=== PATIENT | male | born 1950 | race Caucasian/White ===

== ENCOUNTER 2018-01-24 11:15 | Observation (INO) | payer MEDICARE, OTHER ==
[2018-01-24] MEDS ORDERED: NS 0.9% 1000 ML* 1,000 ML IV SCH (12:00)
--- NOTE | 2018-01-24 12:20 | RAD ---
INDICATION: TIA. COMPARISON: There are no prior studies available for comparison. TECHNIQUE: Contiguous axial sections of the brain were obtained from the skull base to the vertex without contrast. FINDINGS: The ventricles, cisterns and sulci are within normal limits. No significant focal abnormality or mass effect is seen. There is no evidence for hemorrhage. No significant focal osseous abnormality is seen. The visualized portion of the paranasal sinuses and mastoid air cells appear clear. The results of this examination were called to referring clinician at 1215 hours. IMPRESSION: NO EVIDENCE FOR GROSS ACUTE INFARCT, MASS EFFECT OR HEMORRHAGE.
[2018-01-24 12:27] LABS: ABS Basophils 0 10^3/ul (0-0.2); ABS Eosinophils 0.2 10^3/ul (0-0.6); ABS Lymphocytes 1.4 10^3/ul (1.0-4.8); ABS Monocytes 0.5 10^3/ul (0-0.8); ABS Neutrophils 4.2 10^3/ul (1.5-7.7); ABS Nucleated RBC 0 10^3/ul; Hematocrit 46 % (42-52); Hemoglobin 15.4 g/dl (14.0-18.0); Lymphocyte % 22.1 % (25-47); Mean Corpuscular HGB Conc 34 g/dl (31-36); Mean Corpuscular Hemoglobin 31 pg (27-31); Mean Corpuscular Volume 91 fL (80-94); Mean Platelet Volume 7.2 um3 (7.4-10.4); Nucleated Red Blood Cells % 0; Platelet Count 195 10^3/ul (150-450); Red Blood Count 5.01 10^6/ul (4.0-5.4); Red Cell Distribution Width 13 % (10.5-15); White Blood Count 6.4 10^3/ul (3.5-10.8)
[2018-01-24 12:30] LABS: Urine Appearance Clear; Urine Blood Negative (Negative); Urine Color Yellow; Urine Ketones Negative (Negative); Urine Protein Negative (Negative); Urine Specific Gravity 1.011 (1.010-1.030); Urine Urobilinogen Negative (Negative)
[2018-01-24 12:44] LABS: INR 0.83 (0.77-1.02)
--- NOTE | 2018-01-24 13:51 | ED ---
Drew Chang Tiffany, scribed for Trenton Angeles on 01/24/18 at 1148 . Altered Mental Status - HPI Summary HPI Summary: 67 y/o M LITA to [facility] complains of altered mental status lasting from 08:30 to 10:30 this morning. Symptoms aggravated and alleviated by nothing. Denies pain, vision changes, weakness. Reports waking up at 07:00. Per , last known well was 08:30 when she left the house. Patient called at 09:45 and couldn't remember anything (e.g., pt didn't know where was, didn't recognize garage , wasn't making sense, was confused). Per , ambulance arrived around 10:45 and pt was fine. Hit by 2x4 while working outside 2-3 days ago. Hx of concussion. Denies hx stroke. - History Of Current Complaint Chief Complaint: EDAltMentalStatus Stated Complaint: AMS Time Seen by Provider: 01/24/18 11:41 Hx Obtained From: Patient, Family/Hydrographical Technical Officer - Last Known Well Date: 01/24/18 at 08:30 Character: Confusion Aggravating Factor(s): Nothing Alleviating Factor(s): Nothing Associated Signs And Symptoms: Positive: Negative - pain, vision changes, weakness - Allergies/Home Medications Allergies/Adverse Reactions: Allergies Allergy/AdvReac Type Severity Reaction Status Date / Time No Known Allergies Allergy Verified 04/19/14 15:25 PMH/Surg Hx/FS Hx/Imm Hx Previously Healthy: No Endocrine/Hematology History: Reports: Hx Thyroid Disease Denies: Hx Diabetes Cardiovascular History: Reports: Hx Angina, Hx Hypercholesterolemia, Hx Hypertension Denies: Hx Coronary Artery Disease, Hx Valvular Heart Disease Respiratory History: Denies: Hx Asthma, Hx Chronic Obstructive Pulmonary Disease (COPD) Musculoskeletal History: Reports: Hx Arthritis Sensory History: Reports: Hx Contacts or Glasses, Hx Hearing Aid - NOT WITH PT Opthamlomology History: Reports: Hx Contacts or Glasses Neurological History: Denies: Hx CVA, Hx Transient Ischemic Attacks (TIA) - Surgical History Surgery Procedure, Year, and Place: Tonsillectomy Infectious Disease History: No Infectious Disease History: Denies: Traveled Outside the [place] in Last 30 Days - Family History Known Family History: Positive: Cardiac Disease - Mother had heart failure, father had triple bypass, Diabetes - Mother, sister, Other - Sister had kidney transplant - Social History Alcohol Use: Daily Alcohol Amount: 2-3 cans/beer Hx Substance Use: No Substance Use Type: Reports: None Hx Tobacco Use: Yes Smoking Status (MU): Former Smoker Review of Systems Constitutional: Negative - Pain Eyes: Negative - Vision changes Neurological: Other - Althered mental status lasting from 08:30 to 10:30 this morning Negative: Weakness All Other Systems Reviewed And Are Negative: Yes Physical Exam - Summary Physical Exam Summary: Appearance: Well appearing, no pain distress Skin: warm, dry, reflects adequate perfusion Head/face: normal Eyes: EOMI, SANDRA ENT: normal Neck: supple, non-tender Respiratory: CTA, breath sounds present Cardiovascular: RRR, pulses symmetrical Abdomen: non-tender, soft Bowel: present Musculoskeletal: normal, strength/ROM intact Neuro: normal, sensory motor intact, A&Ox3, NIH is 0 Triage Information Reviewed: Yes Vital Signs On Initial Exam: Initial Vitals Pulse Resp Pulse Ox 65 17 93 01/24/18 11:25 01/24/18 11:25 01/24/18 11:25 Vital Signs Reviewed: Yes Diagnostics - Vital Signs Vital Signs Temp Pulse Resp BP Pulse Ox 01/24/18 11:33 98.3 F 73 12 145/87 96 01/24/18 11:25 65 17 93 - Laboratory Lab Results: Lab Results 01/24/18 01/24/18 01/24/18 Range/Units 12:15 12:15 12:15 WBC 6.4 (3.5-10.8) 10^3/ul RBC 5.01 (4.0-5.4) 10^6/ul Hgb 15.4 (14.0-18.0) g/dl Hct 46 (42-52) % MCV 91 (80-94) fL MCH 31 (27-31) pg MCHC 34 (31-36) g/dl RDW 13 (10.5-15) % Plt Count 195 (150-450) 10^3/ul MPV 7.2 L (7.4-10.4) um3 Neut % (Auto) 66.1 (38-83) % Lymph % (Auto) 22.1 L (25-47) % [place] % (Auto) 8.4 H (0-7) % Eos % (Auto) 3.0 (0-6) % Baso % (Auto) 0.4 (0-2) % Absolute Neuts (auto) 4.2 (1.5-7.7) 10^3/ul Absolute Lymphs (auto) 1.4 (1.0-4.8) 10^3/ul Absolute Monos (auto) 0.5 (0-0.8) 10^3/ul Absolute Eos (auto) 0.2 (0-0.6) 10^3/ul Absolute Basos (auto) 0 (0-0.2) 10^3/ul Absolute Nucleated RBC 0 10^3/ul Nucleated RBC % 0 INR (Anticoag Therapy) 0.83 (0.77-1.02) APTT 33.2 (26.0-36.3) seconds Sodium 140 (139-145) mmol/L Potassium Pending Chloride 106 (101-111) mmol/L Carbon Dioxide 26 (22-32) mmol/L Anion Gap Pending BUN 17 (6-24) mg/dL Creatinine 1.05 (0.67-1.17) mg/dL Est GFR ( Amer) 90.1 (>60) Est GFR (Non-Af Amer) 70.0 (>60) BUN/Creatinine Ratio 16.2 (8-20) Glucose 93 (70-100) mg/dL Calcium 9.5 (8.6-10.3) mg/dL Total Bilirubin 0.60 (0.2-1.0) mg/dL AST Pending ALT 24 (7-52) U/L Alkaline Phosphatase 76 (34-104) U/L Total Protein 7.2 (6.4-8.9) g/dL Albumin 4.4 (3.2-5.2) g/dL Globulin 2.8 (2-4) g/dL Albumin/Globulin Ratio 1.6 (1-3) Urine Color Urine Appearance Urine pH (5-9) Ur Specific Pollock (1.010-1.030) Urine Protein (Negative) Urine Ketones (Negative) Urine Blood (Negative) Urine Nitrate (Negative) Urine Bilirubin (Negative) Urine Urobilinogen (Negative) Ur Leukocyte Esterase (Negative) Urine Glucose (Negative) 01/24/18 Range/Units 12:16 WBC (3.5-10.8) 10^3/ul RBC (4.0-5.4) 10^6/ul Hgb (14.0-18.0) g/dl Hct (42-52) % MCV (80-94) fL MCH (27-31) pg MCHC (31-36) g/dl RDW (10.5-15) % Plt Count (150-450) 10^3/ul MPV (7.4-10.4) um3 Neut % (Auto) (38-83) % Lymph % (Auto) (25-47) % [place] % (Auto) (0-7) % Eos % (Auto) (0-6) % Baso % (Auto) (0-2) % Absolute Neuts (auto) (1.5-7.7) 10^3/ul Absolute Lymphs (auto) (1.0-4.8) 10^3/ul Absolute Monos (auto) (0-0.8) 10^3/ul Absolute Eos (auto) (0-0.6) 10^3/ul Absolute Basos (auto) (0-0.2) 10^3/ul Absolute Nucleated RBC 10^3/ul Nucleated RBC % INR (Anticoag Therapy) (0.77-1.02) APTT (26.0-36.3) seconds Sodium (139-145) mmol/L Potassium Chloride (101-111) mmol/L Carbon Dioxide (22-32) mmol/L Anion Gap BUN (6-24) mg/dL Creatinine (0.67-1.17) mg/dL Est GFR ( Amer) (>60) Est GFR (Non-Af Amer) (>60) BUN/Creatinine Ratio (8-20) Glucose (70-100) mg/dL Calcium (8.6-10.3) mg/dL Total Bilirubin (0.2-1.0) mg/dL AST ALT (7-52) U/L Alkaline Phosphatase (34-104) U/L Total Protein (6.4-8.9) g/dL Albumin (3.2-5.2) g/dL Globulin (2-4) g/dL Albumin/Globulin Ratio (1-3) Urine Color Yellow Urine Appearance Clear Urine pH 5.0 (5-9) Ur Specific Pollock 1.011 (1.010-1.030) Urine Protein Negative (Negative) Urine Ketones Negative (Negative) Urine Blood Negative (Negative) Urine Nitrate Negative (Negative) Urine Bilirubin Negative (Negative) Urine Urobilinogen Negative (Negative) Ur Leukocyte Esterase Negative (Negative) Urine Glucose Negative (Negative) Result Diagrams: 01/24/18 12:15 01/24/18 12:15 Lab Statement: Any lab studies that have been ordered have been reviewed, and results considered in the medical decision making process. - CT Brain CT Interpretation Completed By: Radiologist - NO EVIDENCE FOR GROSS ACUTE INFARCT, MASS EFFECT OR HEMORRHAGE. ED physician has reviewed this report. - EKG 12:12 Cardiac Rate: NL - 61 BPM EKG Rhythm: Sinus Rhythm EKG Interpretation: No acute changes National Institutes Of Health - NIH Scale Level of Consciousness: Alert/Keenly Responsive Ask Patient the Month and His/Her Age: Both Correct Ask Pt to Open/Close Eyes and Personnel Monitor/Release Non-Paretic Hand: Both Correctly Best Gaze (Only Horizontal Eye Movement): Normal Visual Field Testing: No Visual Loss Facial Paresis-Pt to Smile & Close Eyes or Grimace Symmetry: Normal/Symmetrical Motor Function - Right Arm: No Drift-Holds 10 Seconds Motor Function - Left Arm: No Drift-Holds 10 Seconds Motor Function - Right Leg: No Drift-Holds 10 Seconds Motor Function - Left Leg: No Drift-Holds 10 Seconds Limb Ataxia-Must be out of Proportion to Weakness Present: Absent Sensory (Use Pinprick to Test Arms/Legs/Trunk/Face): Normal Best Language (Describe Picture, Name Items): No Aphasia Dysarthria (Read Several Words): Normal Extinction and Inattention: No Abnormality Total Score: 0 Altered Mental Statu Course/Dx - Course Course Of Treatment: 67 y/o M BIBA to [facility] complains of altered mental status. Bloodwork, UA, imaging obtained. Consulted patient care with Dr. Starkey, hospitalist, who agrees to admit patient. - Diagnoses Differential Diagnosis/HQI/PQRI: CVA, Intracranial Bleed, Seizure, Other - seizures Provider Diagnoses: TGA (transient global amnesia) - Provider Notifications Discussed Care Of Patient With: Jolynn Starkey Time Discussed With Above Provider: 12:45 Instructed by Provider To: Other - Dr. Starkey, hospitalist, agrees to admit patient. - Critical Care Time Critical Care Time: 30-74 min - 30 minutes Discharge - Sign-Out/Discharge Documenting (check all that apply): Discharge/Admit/Transfer - Discharge Plan Condition: Stable Disposition: ADMITTED TO [facility] Referrals: Abhishek Rai MD [Primary Care Provider] - - Billing Disposition and Condition Condition: STABLE Disposition: [facility] [place] The documentation as recorded by the Drew calvert Tiffany accurately reflects the service I personally performed and the decisions made by Bridgette hall Emmanuel.
--- NOTE | 2018-01-24 15:47 | CONS ---
CONSULTATION REPORT: DATE OF CONSULT: 01/24/18. CONSULTING PHYSICIAN: Dr. Angeles. REASON FOR CONSULT: Memory impairment. CHIEF COMPLAINT: Loss of time. HISTORY OF PRESENT ILLNESS: Elie Judge is a 67-year-old right handed male who has a history of thyroid disease and childhood seizures, who woke up at 7:30 a.m. in normal state of health and helped his load up boxes into the vehicle. He also had breakfast with his thereafter. At 9:30 a.m., the patient called his over the phone to explain some deficits which consisted of confusion. He then called his at 10 a.m. and stated that he does not think he needs an ambulance and then he was confused why his garage was a mess and does not look like his own garage. These symptoms never occurred before. The patient stated that he was telling his that he has lost time. He is unsure what happened. There was no seizure activity reported. He denied any tongue biting or impairment in his bowel or bladder functions. He has no idea and does not recall contacting his at 9:30 a.m. He does remember talking to his at that time. He denied any focal weakness or paresthesias. He denied any headaches. The patient does have history of tinnitus, vertigo, and hearing loss. He was never diagnosed except with benign vertigo, but never given the diagnosis of Meniere's disease. The patient had a CT head without contrast that showed no evidence of acute intracranial process. The patient's symptoms completely resolved after 20 minutes. Laboratory values WBC of 6.4, hemoglobin 15.4, hematocrit 46, platelet 195. INR 0.83. Sodium of 140. PAST MEDICAL HISTORY: Thyroid disease, seizure history as a child, bilateral shoulder pain. PAST SURGICAL HISTORY: Tonsillectomy. MEDICATIONS: Levothyroxine and Tums. FAMILY HISTORY: Sister has diabetes and his father had narcolepsy. The patient 's son has seizures. SOCIAL HISTORY: He is a former tobacco user and he quit 40 years ago. He drinks alcohol daily 2 to 3 beers for over 10 years. 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 He is . He has 2 children. His son suffers from epilepsy. REVIEW OF SYSTEMS: He denied any chest pain, shortness of breath or palpitations. He denied any headaches, visual disturbance, or speech impairment. A 14-point review of systems was obtained, and reviewed and was otherwise negative except for what was mentioned in the HPI. PHYSICAL EXAM: Vitals: Temperature of 98.3, pulse of 73, respiratory rate of 12, oxygen saturation of 96% and blood pressure 145/87. General: Well-nourished well-developed man. He is hard of hearing. He is alert, cooperative, in no apparent distress. Head is normocephalic without any obvious abnormality. Eyes: Conjunctivae and corneas are clear. Neck: Supple and symmetric. There are no carotid bruits. Lungs: Clear to auscultation bilaterally and nonlabored breathing. Cardiovascular: Regular rate rhythm. Normal S1, S2. Radial pulses are palpable. Extremities: Normal range of motion without any cyanosis. Skin: No skin lesion or lacerations. Psych: Affect is broad and normal mood. He is easy to establish a rapport. Neurological Examination: Mental Status: He is awake and alert, oriented to person, place, time and general circumstances. Speech and language including expression, naming, repetition and comprehensions were assessed and found to be normal. Cranial Nerves: Normal to confrontation bilaterally with pupils mid range and reactive to light with normal consensual response. Extraocular muscles are intact. No ptosis. Sensation is intact in the forehead, cheeks, and jaw region. No facial droop and facial symmetry is normal. Able to hear throughout the history process. Symmetrical palate elevation. Normal strength against resistance for shoulder shrug and tongue is symmetrical and midline with anterior fasciculation. Motor examination, no abnormal movements pronator drift. Normal bulk and tone throughout. No fasciculation. Neck distention is 5. Shoulder range of motion is full. Other motor function is normal 5/5 throughout. Reflexes (right/left): Brachioradialis 2/2 biceps 2/2, triceps 2/2 , patella 2/2, ankle 0/0. Plantar flexor/flexor. Sensation is intact to light touch throughout. Normal vibration and proprioception at the great toes. Coordination: Normal [id number] and rapid alternating movements. Gait and station: Narrow based. Normal stance and gait. LABORATORY DATA/IMAGING AND OTHER DIAGNOSTIC TESTING: As per HPI. ASSESSMENT: 1. A 67-year-old man with no significant past medical history except for childhood seizures, who developed a sudden onset of confusion, and amnesia lasting for about 20 minutes today. I suspect the patient has transient global amnesia. However, further evaluation for vertebrobasilar insufficiency and temporal lobe seizures should be done. 2. Tinnitus, hearing loss, and episodic vertigo - I suspect the patient has a vestibular dysfunction or underlying Meniere's disease. He is not currently complaining of any vertigo. He does take meclizine at home. PLAN/RECOMMENDATIONS: Admit the patient to the hospitalist service for further evaluation of amnesia. Obtain an MRI of the brain without contrast and MRA of the head without contrast. In addition, obtain a bedside routine EEG to evaluate for any epileptiform abnormalities. Neuro-checks q. 4 hours. Discontinue IV fluids. Please consult case management or social welfare administrator as the patient wants to make sure this hospitalization is covered by his insurance as he would now want to be hospitalized if it is not. I discussed driving restriction with the patient and his spouse. He should not be operating any heavy machinery until the diagnosis is clear or until we know these episodes are not related to seizures. Neurology will continue to follow. I discussed the above recommendation with the patient and his spouse. TIME SPENT: I spent a total of 75 minutes and greater than 50% of that was spent directly reviewing the medical chart, obtaining history, examining the patient, education and counseling, and the treatment plan and prognosis which we d not know at this time. I recommend multivitamin supplementation given his history of alcohol use. [id number]/[facility] #: [id number] LATOYA
[2018-01-24] MEDS: Multivitamins/Minerals TAB PO SCH (15:48)
[2018-01-24] MEDS: Thiamine TAB* 100 MG TAB PO SCH (15:49)
--- NOTE | 2018-01-24 16:26 | RAD ---
HISTORY: MRI clearance. COMPARISON: None. FINDINGS: Frontal and lateral views of the orbits. There is no radiopaque foreign body attributable to the orbits. The orbital rims are intact. The sinuses are clear. The zygomatic arches are normal. IMPRESSION: No radiopaque foreign body attributable to the orbits.
--- NOTE | 2018-01-24 17:08 | RAD ---
HISTORY: Transient global amnesia COMPARISONS: Head CT dated January 24, 2018 TECHNIQUE: The following sequences were obtained of the head: Sagittal T1-weighted images, axial T2-weighted images, axial FLAIR images, axial susceptibility weighted images, axial T1-weighted images. Additionally, axial diffusion-weighted images were obtained with calculated apparent diffusion coefficients. FINDINGS: HEMORRHAGE/INFARCT: There is no hemorrhage or acute infarct. MASSES/SHIFT: There is no mass or shift. EXTRA-AXIAL SPACES/MENINGES: There are no extra-axial fluid collections. SULCI AND VENTRICLES: The sulci and ventricles are normal in size and position for the patient's stated age. CEREBRUM: There are few, scattered small foci of elevated T2/FLAIR signal within the periventricular and subcortical white matter. BRAINSTEM: There are no focal parenchymal abnormalities. CEREBELLUM: There are no focal parenchymal abnormalities. The cerebellar tonsils are normal in size and position. SELLA: The sella is normal. PINEAL: The pineal region is clear. CP ANGLE/TEMPORAL BONES: The labyrinthine structures are grossly normal. VESSELS: Normal flow-voids are noted within the visualized vertebral vasculature. DIFFUSION ABNORMALITIES: There are no diffusion abnormalities. PARANASAL SINUSES/MASTOIDS: There is an enhancing fluid level within the sphenoid sinus. ORBITS: The orbits are unremarkable. BONES AND SOFT TISSUE: No bone or soft tissue abnormalities are noted. OTHER: None IMPRESSION: 1. THERE ARE FEW, SCATTERED, SMALL FOCI OF ELEVATED T2/FLAIR SIGNAL WITHIN THE PERIVENTRICULAR AND SUBCORTICAL WHITE MATTER. WHILE THESE FINDINGS ARE NONSPECIFIC, THEY CAN BE SEEN IN ASSOCIATION WITH MIGRAINE HEADACHE, THE SEQUELA OF PREVIOUS INFECTION OR INFLAMMATION, AND CHRONIC SMALL VESSEL ISCHEMIA. DEMYELINATING DISEASE IS ALSO WITHIN THE DIFFERENTIAL, BUT IS CONSIDERED LESS LIKELY IN THE ABSENCE OF THE APPROPRIATE CLINICAL PRESENTATION. 2. THERE IS NO RESTRICTED DIFFUSION TO SUGGEST ACUTE INFARCT. 3. MILD SINUS MUCOSAL INFLAMMATORY DISEASE, WITH AN AIR-FLUID LEVEL IN THE SPHENOID SINUS. IN THE CORRECT CLINICAL SETTING, THIS MAY REPRESENT ACUTE SINUSITIS
--- NOTE | 2018-01-24 17:14 | RAD ---
HISTORY: Transient global amnesia COMPARISONS: MRI of the brain dated January 24, 2018 TECHNIQUE: 3-D axial plip-cf-cutitg MR angiography was performed of the head to include the chitimacha of Mathew. Multiple 3-D maximum intensity projection reconstructions are also submitted for review. FINDINGS: The study is limited by patient motion artifact. RIGHT VERTEBRAL ARTERY: There is decreased flow related enhancement within the V4 segment of the right vertebral artery. LEFT VERTEBRAL ARTERY: The distal left vertebral artery is unremarkable, without stenosis. DOMINANCE: The left vertebral artery is dominant. DISTAL RIGHT CERVICAL INTERNAL CAROTID ARTERY: The distal right cervical internal carotid artery is unremarkable. DISTAL LEFT CERVICAL INTERNAL CAROTID ARTERY: The distal left cervical internal carotid artery is unremarkable. INTRACRANIAL CIRCULATION: As noted above, there is decreased flow-related enhancement within the V4 segment of the right vertebral artery. Elsewhere, there is no aneurysm, vascular malformation, occlusion, or stenosis of the visualized intracranial circulation. The anterior communicating artery complex is clear. The anterior tibial artery complex is dominant over the A1 segment of the right anterior cerebral artery. Bilateral posterior communicating arteries are identified. OTHER FINDINGS: None IMPRESSION: 1. DECREASED FLOW RELATED ENHANCEMENT WITHIN THE V4 SEGMENT OF THE RIGHT VERTEBRAL ARTERY WHICH MAY INDICATE STENOSIS OR OCCLUSION OF THE DISTAL RIGHT VERTEBRAL ARTERY. 2. ELSEWHERE, THERE IS NO ANEURYSM, VASCULAR MALFORMATION, OCCLUSION, OR STENOSIS OF THE VISUALIZED INTRACRANIAL CIRCULATION.
--- NOTE | 2018-01-24 20:15 | HP ---
CC: Abhishek Rai MD * ADMISSION HISTORY AND PHYSICAL: DATE OF ADMISSION: 01/24/18 PRIMARY CARE PHYSICIAN: Abhishek Rai MD MY ATTENDING FOR TODAY: Jolynn Starkey MD * (DICTATED BY ROSEMARY GIBSON NP) CHIEF COMPLAINT: Altered mental status. HISTORY OF PRESENT ILLNESS: This is a very pleasant 67-year-old male patient who states that earlier today he was at home this morning in his usual state of health; however, he had a period of time that he does not remember and apparently had called his at work twice and was speaking in a confused manner. The patient states by the time he was making the second phone call, he started to have some memory of this episode where he did not know where he was and then started to realize that he was having a problem. The patient's stated that by the time the ambulance came at approximately quarter to 11, the patient's symptoms had resolved. These symptoms lasted approximately 2 hours. He was last seen at 8:30 in the morning and then again about 10:30, symptoms had completely resolved. Also of significant note, the patient states about 3 days ago he was in his garage, working around his home, and a 4 x 4 fell on his head striking him around the left parietal region. The patient states he had no loss of consciousness at that time, no headache and no further neurologic complaints at that time. PAST MEDICAL HISTORY: Significant for: 1. Hypothyroidism. 2. Hypercholesterolemia. 3. Hypertension. 4. Some sort of seizure disorder as a child. PAST SURGICAL HISTORY: Tonsillectomy as a child. MEDICATIONS AT HOME: Include Synthroid 25 mcg daily. ALLERGIES: No known drug allergies. FAMILY HISTORY: Mother and father both with cardiac disease and heart failure, father with triple bypass surgery and diabetes, and sister with renal disease. SOCIAL HISTORY: The patient drinks beer daily, 2 to 3 cans. Denies smoking currently. He quit smoking approximately 40 years ago. Denies any illicit drug use. He is retired. Lives at home with his who is his medical healthcare proxy. She is currently at the bedside. REVIEW OF SYSTEMS: A 10-point review of systems is negative except as noted in the HPI. PHYSICAL EXAMINATION GENERAL: The patient is alert, well appearing, no acute distress. VITAL SIGNS: Currently, blood pressure 132/84, heart rate 62, respiratory rate 18, 95% on room air, temperature 98.3. HEENT: The patient is atraumatic, normocephalic. There is no bruising. No abrasions or lacerations to the scalp. He has PERRLA. Extraocular movements are intact. Oral mucosa is moist. Tongue is midline. NECK: Supple, nontender. No JVD noted. No carotid bruits auscultated. LUNGS: Clear to auscultation. No wheezing, rhonchi, or rales. CARDIOVASCULAR: S1, S2 present. Rate and rhythm are regular. No murmurs, gallops, or rubs noted. ABDOMEN: Soft, nontender, nondistended. He does have a small area of erythema , which the patient states was a tick bite approximately 1 week ago. Does not appear to be infected. There is no exudate or drainage. It is just lateral to the navel, approximately 0.5 cm in size and round. MUSCULOSKELETAL: He has +2 distal pulses. No edema, no clubbing, no cyanosis. He has a steady gait. NEUROLOGIC: Gross motor and sensation are intact. There is no pronator drift. Sm[place]ter Liner are equal. He has facial symmetry. No focal neurologic deficits. PSYCHIATRIC: He is cooperative and appropriate. LABORATORY DATA/DIAGNOSTIC STUDIES: WBC 6.4, RBC 5.01, hemoglobin 15.4, hematocrit 46, platelets 195,000, MPV 7.2, neutrophils 66.1, lymphocytes 22.1, monos 8.4. Sodium 140, potassium 4.1, chloride 106, CO2 of 26, BUN 17, creatinine 1.05, GFR 70.0, glucose 93. Calcium 9.5. Bilirubin 0.60, AST 25, ALT 24, alk phos 76. Protein 7.2. Albumin 4.4, globulin 2.8. INR 0.83. Urinalysis is negative for any acute infectious process. CAT scan of the head shows no intracranial hemorrhage or infarct. No evidence for gross acute infarct, mass effect, or hemorrhage. IMPRESSION: This is a 67-year-old male patient with a history of hypothyroidism who is normally very active, reports a recent closed head trauma , but had no subsequent sequelae who now presents to the emergency department with a transient global amnesia. PLAN: The patient has been admitted to medical service. DIAGNOSES: Transient global amnesia versus seizure versus other etiology. Again, the patient had this brief period of confusion consistent with a transient global amnesia. Etiology is not clear at this time. We will do an MRI and MRA without contrast. Neurology has already seen the patient and been consulted. Neurology also wishes to have an EEG given that the patient seems to have a vague recollection of having some sort of seizure disorder as a child perhaps. We will also place him on neuro checks q.4 hours and add MVI and folate. The patient does not appear to be grossly alcoholic; however, with daily beer drinking and with his neurologic symptoms, it would be prudent to place him on MVI and thiamine. For his hypothyroidism, we will continue his Synthroid. I am concerned about the tick bite. At this point, I think it would be warranted to send a Lyme panel. Even though the patient does not have a large gross rash, he does work outside quite a bit and could perhaps be presenting with some latent neurologic symptoms secondary to Lyme, so we will send his blood for PCR testing. For DVT prophylaxis, the patient is low risk and ambulatory. He is a full code. The rest of the patient's course will be determined by further diagnostics, laboratories, and any other input from other providers as warranted during this admission. We will continue to monitor the patient closely. ROSEMARY GIBSON, [employer] [id number]/CPS #: [id number] LATOYA
[2018-01-25] MEDS ORDERED: Levothyroxine TAB* 75 MCG TAB PO SCH (06:00)
[2018-01-25 07:37] VITALS: BP 133/77
--- NOTE | 2018-01-25 08:17 | PN ---
Subjective Date of Service: 01/25/18 Interval History: Patient seen and examined at bedside. Denies fever, chills, lightheadedness or dizziness, shortness of breath, chest discomfort, N/V/D, joint pain (other than shoulders). Pt states that he continues to have a short period of time yesterday that he doesn't remember. He also reports intermittent shoulder pain and numbness to bilateral hands, Pt was encouraged to see an orthopedic provider for further evaluation of this. Tele: Sinus rhythm, rate 50-70's Family History: Unchanged from Admission Social History: Unchanged from Admission Past Medical History: Unchanged from Admission Objective Active Medications: Sodium Chloride (Ns 0.9% 1000 Ml*) 1,000 mls @ 50 mls/hr IV .per rate ANTONY Levothyroxine Sodium (Synthroid Tab*) 75 mcg PO 0600 [facility] Multivitamins/Minerals (Theragran/Minerals Tab*) 1 tab PO DAILY ANTONY Thiamine HCl (Vitamin B-1 Tab*) 100 mg PO DAILY ANTONY Vital Signs - 8 hr 01/25/18 01/25/18 01/25/18 02:44 03:43 07:24 Temperature 98.0 F 97.7 F Pulse Rate 51 55 Respiratory 16 16 Rate Blood Pressure 123/74 133/77 (mmHg) O2 Sat by Pulse 98 99 99 Oximetry 01/25/18 07:39 Temperature Pulse Rate Respiratory 16 Rate Blood Pressure (mmHg) O2 Sat by Pulse Oximetry Oxygen Devices in Use Now: None Appearance: NAD, sitting up in a chair Ears/Nose/Mouth/Throat: Mucous Membranes Moist Respiratory: Symmetrical Chest Expansion and Respiratory Effort, Clear to Auscultation Cardiovascular: NL Sounds; No Murmurs; No JVD, RRR Abdominal: NL Sounds; No Tenderness; No Distention Extremities: No Edema Neurological: Alert and Oriented x 3, NL Muscle Strength and Tone Lines/Tubes/Other Access: Clean, Dry and Intact Peripheral IV - site benign Nutrition: Taking PO's Result Diagrams: 01/24/18 12:15 01/24/18 12:15 Diagnostic Imaging: Exam Date: 01/24/18 1325 MRA HEAD W/O IMPRESSION: 1. DECREASED FLOW RELATED ENHANCEMENT WITHIN THE V4 SEGMENT OF THE RIGHT VERTEBRAL ARTERY WHICH MAY INDICATE STENOSIS OR OCCLUSION OF THE DISTAL RIGHT VERTEBRAL ARTERY. 2. ELSEWHERE, THERE IS NO ANEURYSM, VASCULAR MALFORMATION, OCCLUSION, OR STENOSIS OF THE VISUALIZED INTRACRANIAL CIRCULATION. Exam Date: 01/24/18 1325 MRI BRAIN W/O IMPRESSION: 1. THERE ARE FEW, SCATTERED, SMALL FOCI OF ELEVATED T2/FLAIR SIGNAL WITHIN THE PERIVENTRICULAR AND SUBCORTICAL WHITE MATTER. WHILE THESE FINDINGS ARE NONSPECIFIC, THEY CAN BE SEEN IN ASSOCIATION WITH MIGRAINE HEADACHE, THE SEQUELA OF PREVIOUS INFECTION OR INFLAMMATION, AND CHRONIC SMALL VESSEL ISCHEMIA. DEMYELINATING DISEASE IS ALSO WITHIN THE DIFFERENTIAL, BUT IS CONSIDERED LESS LIKELY IN THE ABSENCE OF THE APPROPRIATE CLINICAL PRESENTATION. 2. THERE IS NO RESTRICTED DIFFUSION TO SUGGEST ACUTE INFARCT. 3. MILD SINUS MUCOSAL INFLAMMATORY DISEASE, WITH AN AIR-FLUID LEVEL IN THE SPHENOID SINUS. IN THE CORRECT CLINICAL SETTING, THIS MAY REPRESENT ACUTE SINUSITIS Assess/Plan/Problems-Billing Assessment: Mr. Judge is a 67 yo male with PMH significant for hypothyroidism, HLD, HTN, and a seizure disorder as a child who presented to the emergency room with complaints of sudden memory loss and confusion. - Patient Problems (1) Altered mental status Code(s): R41.82 - ALTERED MENTAL STATUS, UNSPECIFIED SNOMED Code(s): 987255723 Comment: - MRI/MRA brain and brain CT, without significant findings - EEG pending - Neurology consult, input appreciated (2) Tick bite Code(s): W57.XXXA - BIT/STUNG BY NONVENOM INSECT & OTH NONVENOM ARTHROPODS, INIT SNOMED Code(s): 35227872 Comment: - Lyme serology pending (3) Hypothyroidism Code(s): E03.9 - HYPOTHYROIDISM, UNSPECIFIED SNOMED Code(s): 24710139 Comment: - Continue levothyroxine (4) HTN (hypertension) Code(s): I10 - ESSENTIAL (PRIMARY) HYPERTENSION SNOMED Code(s): 25449227 Comment: - Mostly normotensive, SBP 100-150's - Continue to monitor, not on home medications (5) HLD (hyperlipidemia) Code(s): E78.5 - HYPERLIPIDEMIA, UNSPECIFIED SNOMED Code(s): 67269262 (6) DVT prophylaxis Code(s): YKU9723 - SNOMED Code(s): 807791819 Comment: - Encourage ambulation (7) Full code status Code(s): Z78.9 - OTHER SPECIFIED HEALTH STATUS SNOMED Code(s): 663627547 Status and Disposition: OBV. Discharge to home when medically stable.
[2018-01-25] MEDS: Thiamine TAB* 100 MG TAB PO SCH (09:20)
[2018-01-25] MEDS: Multivitamins/Minerals TAB PO SCH (09:20)
--- NOTE | 2018-01-26 05:49 | EEG ---
ELECTROENCEPHALOGRAPHY: DATE OF STUDY: 01/24/18 - ROOM #[id number] DATE READ: 01/25/18 ROOM: Inpatient. REFERRING PROVIDER: Shelbi Olguin NP. MEDICATIONS: 1. Levothyroxine. 2. Theragran. 3. Vitamin B1. TIME OF TRACIN2590-5502 p.m. CLINICAL PROBLEM: Mr. Judge is a 67-year-old man who has an episode of transient global amnesia. He also has history of childhood epilepsy. This EEG was requested to evaluate for epileptiform abnormalities or electrographic seizures. CLINICAL STATE: Awake and drowsiness. REPORT: The waking background showed appropriate organization with clearly defined anterior-posterior voltage and frequency gradients. There was a well- defined posterior dominant rhythm of 8.5 Hz, which was symmetrical and showed normal reactivity. Anteriorly, there was an expected pattern of lower voltage irregular, mixed faster frequencies. There were intermittent paroxysms of higher amplitude, 3-5 Hz theta and delta slowing seen in the left frontotemporal region maximally at F7. Attenuation of the occipital rhythm accompanied drowsiness with clear vertex waves in the central frontal region without any sleep spindles. Hyperventilation and photic stimulations were not performed. Single electrode ECG, regular rate and rhythm with a rate of 75. Throughout the recording, there were no epileptiform abnormalities or electrographic seizures. CLINICAL IMPRESSION: This is an abnormal awake and drowsy EEG due to the presence of intermittent left frontotemporal slowing. These findings are suggestive of a focal neuronal dysfunction in that region. There were no epileptiform discharges or electrographic seizures. Clinical correlation is recommended. [id number]/CPS #: [id number] MTDD
--- NOTE | 2018-01-26 07:36 | PN ---
NEUROLOGY PROGRESS NOTE: DATE OF SERVICE: 01/25/18 PROVIDER: Argenis Diaz NP Neurology is following for an episode of amnesia. SUBJECTIVE: The patient has no episode of memory loss overnight. He had no reported seizure activity. He shared to me today that he bumped into a 2x4 two days ago that hit him pretty hard on his head on the left side. He did not lose consciousness. He was in pain for a few hours after the injury. He had a small laceration in the region, but that resolved. REVIEW OF SYSTEMS: He denied any focal weakness or paresthesias. He denied any visual disturbance or swallowing difficulty. He denied any chest pain, shortness of breath, or palpitations. IMAGING/LABORATORY DATA: The patient had an EEG that showed mild left temporal slowing that was intermittent. He had an MRI of the brain completed on that I personally reviewed. There are a few scattered small foci of elevated T2 FLAIR signal within the periventricular and subcortical white matter. These are nonspecific findings. There was no restricted diffusion to suggest acute infarct. There is mild sinus mucosal inflammatory disease with an air fluid level in the sphenoid sinus. MRA of the head completed on 01/24/18, personally reviewed. There is decreased flow related enhancement within the V4 segment of the right vertebral artery, which may indicate stenosis or occlusion. There is no intracranial large vessel occlusion elsewhere. MEDICATIONS: 1. Levothyroxine. 2. Multivitamin. 3. Thiamine. PHYSICAL EXAMINATION: Vitals: Temperature of 97.7, pulse rate of 55, respiratory rate of 16, oxygen saturation of 99%, blood pressure 132/77. The patient did have episodes of bradycardia where his heart rate went down to as low as 47. He was asymptomatic. General: A well-nourished, well-developed man , in no acute distress. He is sitting in a chair next to family members. Head : Atraumatic and normocephalic without any obvious abnormality. Eyes: Conjunctivae/corneas were clear. Neck: Supple with no carotid bruits. Lungs: Clear to auscultation bilaterally. Extremities: Normal range of motion with no cyanosis. Psych: Affect is broad and normal. Mood: Easy to establish rapport. Neurological: The patient is awake and alert, oriented to person, place, time and general circumstances. Speech and language including expression naming, repetition, comprehension were assessed and found to be normal. Pupils are equal, round and reactive to light. Extraocular muscles are intact. Normal facial asymmetry. Tongue is symmetric and midline with no atrophy. Motor strength 5/5 throughout. There are no tremors or pronator drift. Reflexes 2+ throughout with 1+ at the ankles bilaterally. Flexor plantar response bilaterally. Sensation is intact to light touch throughout the upper and lower extremities symmetrically. Coordination: Normal finger-to- nose and rapid alternating movement. Gait: Narrow based and normal stance with no ataxia. ASSESSMENT: 1. This is a pleasant 67-year-old man with episode of transient global amnesia following a mild concussion. EEG showed evidence of intermittent left frontotemporal slowing which could be possibly due to a small structural abnormality not seen on MRI related to recent injury. There is no evidence of acute stroke. 2. Sinus disease - deferred to the primary team. 3. Asymptomatic bradycardia. 4. History of alcohol dependency. 5. Reported history of memory problems - I will move forward with checking a vitamin B12 and TSH level. I will contact the patient personally if the labs are abnormal. ADDENDUM 01/26/2018: I reviewed the labs. Unfortunately the B12 and TSH were not checked. RECOMMENDATIONS: No indication for AED therapy. I encouraged the patient to take vitamin B12 regularly to improve his memory as he is concerned about his memory. In regards to driving, the patient did not lose consciousness but had a brief loss of memory with intact awareness which was thought to be related to his head trauma. Therefore, I advised him to not drive for the next few days until he makes sure that he does not have further symptoms of memory loss. Lastly, I recommended the patient to take aspirin 81 mg regularly. TIME SPENT: I spent a total of 25 minutes and greater than 50% of that was spent directly reviewing the medical chart, obtaining history, education and counseling, discussing treatment plan and prognosis with the family and the patient at bedside. [id number]/[facility] #: [id number] [facility] HEALTH PARTNERSKyle
--- NOTE | 2018-01-26 19:25 | DS ---
CC: Dr. Abhishek Rai; [facility] * DISCHARGE SUMMARY: DATE OF ADMISSION: 01/24/18 DATE OF DISCHARGE: 01/25/18 ATTENDING PHYSICIAN: Dr. Valerio Pedroza * (dictated by Alexandra Saenz NP). PRIMARY CARE PROVIDER: Dr. Abhishek Rai. PRIMARY DIAGNOSES: 1. Transient global amnesia. 2. Possible concussion. SECONDARY DIAGNOSES: 1. Hypothyroidism. 2. Hyperlipidemia. 3. Hypertension. 4. Seizure disorder as a child. CONSULTATIONS WHILE IN THE HOSPITAL: Dr. Teto Wei with Neurology. STUDIES WHILE IN THE HOSPITAL: Orbital screening on 01/24/18. Radiologist's impression: No radiopaque foreign bodies attributable to the orbitus. Brain CT on 01/24/18. Radiologist's impression: No evidence for gross acute infarct, mass effect, or hemorrhage. Brain MRI on 01/24/18. Radiologist's impression: There are few scattered, small foci of elevated T2/FLAIR signal within the periventricular and subcortical white matter. While these findings are nonspecific, they can be seen in association with migraine headaches as a sequelae of previous infection or inflammation or chronic small vessel ischemia. Demyelinating disease is also within the differential, but is considered less likely in the absence of the appropriate clinical presentation. There is no restricted diffusion to suggest acute infarct. Mild sinus mucosal inflammatory disease, with an air fluid level in the sphenoid sinus in the correct clinical setting. This may represent acute sinusitis. Head MRI on 01/24/18. Radiologist's impression: Decreased flow related enhancement with V4 segment of the right vertebral artery, which may indicate stenosis or occlusion of the distal right vertebral artery. Elsewhere, there is no aneurysm, vascular malformation, occlusion or stenosis of the visualized intracranial circulation. DISCHARGE MEDICATIONS: New home medications: 1. Aspirin 81 mg oral daily. 2. Multivitamin 1 tablet oral daily. 3. Thiamine 100 mg oral daily. Continued home medications: 1. Levothyroxine 75 mcg oral daily. HISTORY OF PRESENT ILLNESS/HOSPITAL COURSE: Mr. Judge is a 67-year-old male with past medical history significant for hypothyroidism, hypercholesterolemia, hypertension, and seizure disorder as a child, who had been in his usual state of health. When there was a period of time that he does not recall, he called his at work twice, speaking in a confused manner due to the second phone call and the patient having some issues with his memory. The patient's called 911 and the patient was brought to the emergency room. According to the patient's , he had been seen at 8:30 in the morning and again at 10:30 and his symptoms had completely resolved except he could not remember making the first phone call. He arrived to the hospital approximately at 10:45. It is also to note that approximately 3 days prior to the patient's presentation while working in his garage, he had a 4x4 fall and strike him in the left parietal region. He had no loss of consciousness, no headaches or further neurological episodes. He had a brain CT showing no acute findings. He was seen in consultation by Neurology, who recommended he will be admitted for further workup for transient global amnesia. He had labs that were essentially unremarkable and the hospitalists were asked to evaluate the patient for admission. While in the hospital, he had a brain MRI showing no acute findings. Head MRA showing decreased flow related enhancement within the V4 segment. Additionally , he had an EEG showing some left temporal slowing. It was felt that this was of nonsignificant, did not represent seizure activity. It was felt that this could possibly correlate with a possible head injury secondary to the 4x4 accident a few days prior. It is also to note the patient was noted to have a tick bite and Lyme serology was sent off. He had no further neurological symptoms and was felt he was ready for discharge. Mr. Judge is stable for discharge to home today. Vital signs are as follows: Temperature 97.7, heart rate 55, respiratory rate 16, O2 sat 99% on room air, blood pressure 133/77. DISCHARGE PLAN: Mr. Judge will be discharged to home. Activity as tolerated. In regards to his suspected transient global amnesia, this appears to be resolving. He should be continued on a baby aspirin. If he continues to have issues with his memory, he should have further workup for seizures and be started on antiepileptic medications. In regards to his tick bite, the serology is not back on this and should be followed up by his primary. The patient has been resumed on his other usual home medications. His primary care provider was unable to get him for a followup for a month, so he has an appointment with [facility] on 01/30/18 at 11:30 a.m. and then will be seen by his primary care provider on 02/24/18 at 1:30 p.m. Patient has been asked to return to the emergency room for any shortness of breath, chest pain, or signs of a stroke such as one-sided weakness, facial drooping, or difficulty with speech. POINTS OF DISCUSSION AT FOLLOWUP: Please followup the patient's Lyme serology at his discharge appointments. He does not have any complaints of joint pain or fever, so he was not started on doxycycline at this time. This is a summarized report of a complex medical history and hospital stay. For further details, please see the entire medical record. TIME SPENT: Time for this discharge was approximately 50 minutes, greater than half of that was spent [id number] with the patient discussing discharge plans and instructions. CONDITION ON DISCHARGE: Stable. ALEXANDRA LOUISE, DARON [id number]/[facility] #: [id number] LATOYA
== END 2018-01-25 10:19 | disposition home or self-care (01) ==
LOC: ED 11:15 → MEDTELE 14:08 → INTOOBSV 14:08 → MEDTELE 17:41
PROVIDERS: ADMIT Internal Medicine; ATTEND Student in an Organized Health Care Education/Training Program
DX: G45.4 Transient global amnesia (principal); E03.9 Hypothyroidism, unspecified; E78.5 Hyperlipidemia, unspecified; I10 Essential (primary) hypertension; G40.909 Epilepsy, unspecified, not intractable, without status epilepticus; Z79.899 Other long term (current) drug therapy; Z87.891 Personal history of nicotine dependence; F10.20 Alcohol dependence, uncomplicated; R00.1 Bradycardia, unspecified; R41.0 Disorientation, unspecified; R41.82 Altered mental status, unspecified; R94.02 Abnormal brain scan; R42 Dizziness and giddiness
CPT/HCPCS: 36415; 70030; 70450; 70544; 70551; 80053; 81003; 85025; 85610; 85730; 87476; 87798; 93005; 95819; 99291; A9270-GY; G0378